=== PATIENT | female | born 1950 | race Asian ===

== ENCOUNTER 2019-06-06 11:19 | Emergency (ER) | payer OTHER, MEDICARE ==
[2019-06-06 11:32] VITALS: BMI 22.1
--- NOTE | 2019-06-06 12:37 | PDOC ---
History of Present Illness - General Chief Complaint: Migraine Headache Stated Complaint: MIGRAINE Time Seen by Provider: 06/06/19 12:13 - History of Present Illness Initial Comments: 06/06/19 12:34 Savita Sellers is a 69F with PMH POEMS and headaches sent to ED from urgent care for high blood pressure and headaches. Patient was seen at urgent care today by Dr. Wilkinson(?) for migraine and concern for high blood pressure. Has had headaches for last month, describes as whole-head splitting/pulsating with frontal predominance, feels as if her head is heavy, no changes to vision. Sees neurologist who has her trial tylenol and sumitriptahole-head splitting/pulsating headaches and head weakness and is generally controlled on this regimen. This morning had a similar headache, took imitrix and has resolved. When she checked her BP, it was 168/98, which is elevated for her as she is normally athletic and has BP 100s-120s, which prompted her to go to urgent care. Also having trouble walking due to imbalance and muscle weakness, which combined with her reported HTN and headache was what prompted referral from urgent care. Denies room-spinning vertigo or nausea. 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 Denies chest pain, SOB, abd pain, urinary sx. 06/06/19 15:16 Past History - Past Medical History Allergies/Adverse Reactions: Allergies Allergy/AdvReac Type Severity Reaction Status Date / Time No Known Allergies Allergy Unverified 06/06/19 11:32 Home Medications: Ambulatory Orders Cyclobenzaprine HCl [Flexeril] 10 mg PO TID PRN #30 tablet 03/25/13 Levothyroxine [Synthroid -] 25 mcg PO DAILY 03/25/13 COPD: No HTN: Yes Other medical history: kesselmans disease, poems syndrom - Immunization History Td Vaccination: No - Suicide/Smoking/Psychosocial Hx Smoking Status: No Smoking History: Never smoked Number of Cigarettes Smoked Daily: 0 Review of Systems - Review of Systems Able to Perform ROS?: Yes Is the patient limited German proficient: No Constitutional: No: Chills, Fever HEENTM: No: Blurred Vision, Double Vision, Hearing Loss Respiratory: Yes: Cough (longstanding cough, non-productive). No: Shortness of Breath Cardiac (ROS): No: Chest Pain, Edema, Lightheadedness, Syncope ABD/GI: No: Blood Streaked Bowels, Constipated, Diarrhea, Nausea, Vomiting : No: Burning, Dysuria, Discharge, Frequency, Hematuria Integumentary: Yes: Change in Color (skin darkening 2/2 POEMS) Neurological: Yes: Headache, Unsteady Gait Endocrine: No: Increased Urine, Change in Weight *Physical Exam - Vital Signs Last Vital Signs Temp Pulse Resp BP Pulse Ox 98 F 69 18 134/79 99 06/06/19 11:27 06/06/19 11:27 06/06/19 11:27 06/06/19 11:27 06/06/19 11:27 - Physical Exam General Appearance: Yes: Nourished, Appropriately Dressed. No: Apparent Distress HEENT: positive: EOMI, JOSE LUIS, Normal Voice, Symmetrical, Pharynx Normal. negative: Scleral Icterus (R), Scleral Icterus (L), Tonsillar Exudate, Rhinorrhea Neck: positive: Trachea midline, Supple. negative: Tender, Lymphadenopathy (R) , Lymphadenopathy (L) Respiratory/Chest: positive: Lungs Clear, Normal Breath Sounds. negative: Chest Tender, Respiratory Distress, Crackles, Rales, Rhonchi Cardiovascular: positive: Regular Rhythm, Regular Rate. negative: Edema, Murmur , Bradycardia, Gallop/S3 Gastrointestinal/Abdominal: positive: Normal Bowel Sounds, Flat, Soft. negative : Organomegaly, Pulsatile Mass Extremity: positive: Normal Capillary Refill, Normal Inspection, Normal Range of Motion. 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 Given her presentation of HTN, headache, and BLE weakness, high concern for hypertensive urgency vs. emergency vs. neurovascular issue such as stroke. However, patient's headache is similar to prior episodes and resolves with sumitriptan as per normal care. HTN resolved at this time to 134, home SBP checked during episode of migraine, patient advised that HTN during stress is normal. 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 Patient now stable and asymptomatic. Has follow-up with neurologist and oncologist this week and has high medical literacy. Plan to discharge home with follow-up with her home physicians. *DC/Admit/Observation/Transfer Diagnosis at time of Disposition: Headache - Discharge Dispostion Disposition: HOME Condition at time of disposition: Improved Decision to Admit order: No - Referrals Referrals: [facility] [place] [Provider Group] - Patient Instructions Printed Discharge Instructions: DI for Migraine Additional Instructions: Today you were referred to the emergency room out of concern for your headaches and trouble walking, as well as your high blood pressure. As you said, your headache today was per your usual and went away with Imitrix. Although your blood pressure was high, the pressure can be elevated during headaches and then return to normal once you are no longer having one, and this is normal. In terms of your imbalance, it seems to be similar to your polyneuropathy symptoms from previously, and you are able to walk slowly without assistance. As we discussed, you should return to see your neurologist and oncologist this week for further evaluation of your symptoms and any laboratory tests they recommend. If you experience worsening headache, the worst headache you have ever felt, have changes to your vision, feel worsening weakness in your legs, arms or face , feel palpitations, feel dizzy, or have nausea, please return to an emergency room immediately. - Post Discharge Activity
[2019-06-06 13:31] VITALS: BP 130/74; PULSE 73; TEMP 98.1
== END 2019-06-06 13:25 | disposition home or self-care (01) ==
LOC: JER 11:19
DX: R51 Headache (principal); I10 Essential (primary) hypertension
CPT/HCPCS: 99282-25